=== PATIENT | female | born 1940 | race Caucasian/White ===

== ENCOUNTER 2016-09-24 09:29 | Day surgery (SDC) | payer OTHER ==
[~2016-09-24] VITALS: Ht 160 cm; Wt 60.4 kg
[~2016-09-24 09:29] MED LIST: 24 HOUR ALLER15.8 ML BOTH NARES; AMBIEN10 MG PO; ASPIRIN81 M2 PO; ATROVENT 0.06%15 ML NS; CEFPROZIL250 MG PO; FLONASE ALLERG9.9 ML BOTH NARES; FLOVENT DISKUS1 DIS2 IH; GLUCOSAMINE &1 EAC1 PO; LEXAPRO5 MG PO; METRO CREAM 0.745 GM TP; NORVASC10 MG PO; NORVASC5 MG PO; PREDNISONE10 M2 PO; PREVACID30 MG PO; VITAMIN D400 UNIT PO; VITAMIN E400 UNIT PO; ZYRTEC10 M2 PO
[2016-09-24 11:18] VITALS: BP 180/80
[2016-09-24 18:24] VITALS: BP 140/73
[2016-09-24 19:37] VITALS: BP 126/59
[2016-09-24 23:58] VITALS: BP 121/61
[2016-09-25 06:47] LABS: MCH 28.6 PG (29.0-34.0); MCHC 32.4 G/DL (30.0-36.0); MCV 88.3 FL (83-99); MEAN PLAT.VOLUME 10.2 uM^3 (9.5-12.4); PLATELET COUNT 213 K/uL (156-360); RBC DIS.WIDTH-CV 12.7 % (11.8-14.6); RBC DIS.WIDTH-SD 41.1 % (39-53); RED BLOOD COUNT 4.19 M/uL (3.80-5.20); WHITE BLOOD COUNT 9.4 K/uL (4.1-10.2)
[2016-09-25 07:16] LABS: ANION GAP 5 MEQ/L (2-14); CHLORIDE 105 MEQ/L (99-109); GFR ESTIMATE (CALCULATED) > 59 mL/min/; GLUCOSE 91 mg/dL (70-99); POTASSIUM 3.7 MEQ/L (3.7-5.4); SAMPLE HEMOLYSIS CHECK 0; SAMPLE ICTERIC CHECK 0; SAMPLE LIPEMIA CHECK 0; SODIUM 140 MEQ/L (136-147); UREA NITROGEN (BUN) 8 mg/dL (9-23)
[2016-09-25 07:46] VITALS: BP 136/64
[2016-09-25 08:20] VITALS: BP 128/66
[2016-09-25] MEDS ORDERED: TYLENOL WITH C1 EACH PO (09:31)
== END 2016-09-25 11:35 | disposition home or self-care (01) ==
LOC: SDC 09:29 → NUC 12:30 → SDC 12:30 → 2SOUTH 12:55 → 2EAST 12:55
PROVIDERS: Surgery
PROC: 0HTU0ZZ Resection of Left Breast, Open Approach (ICD-10-PCS; principal; 2016-09-24)
DX: C50.912 Malignant neoplasm of unspecified site of left female breast (principal); J45.909 Unspecified asthma, uncomplicated; I10 Essential (primary) hypertension; I65.21 Occlusion and stenosis of right carotid artery; Z79.82 Long term (current) use of aspirin; Z79.51 Long term (current) use of inhaled steroids
CPT/HCPCS: 78195; 78999; 80048; 85027; 88307; A9541; G0378; J0330; J0690; J1170; J2405; J3010; J7120